=== PATIENT | male | born 1980 | race Caucasian/White ===

== ENCOUNTER 2018-05-22 14:45 | Emergency (ER) | payer OTHER ==
--- NOTE | 2018-05-22 15:00 | ED Physician Documentation ---
PD HPI FOCAL NEURO - Stated complaint Stated Complaint: NUMB FACE/SLURRING - Chief complaint Chief Complaint: Neuro - History obtained from History obtained from: Patient - History of Present Illness Timing - onset: Today (He had brief symptoms about a month ago and again today. The first time it lasted about a minute, this time 2-3 minutes. Basically what he noticed is watering of the right eye and then tenderness on the right and facial numbness without any symptoms below the neck. He had this episode today lasted 3 minutes about an hour [place]. There is no associated headache. Other than the other time a month ago has only happened one time. He has no personal medical problems but he does note a history of stroke in the family at age 53 claiming his father.) Review of Systems Ten Systems: 10 systems reviewed and negative Constitutional: denies: Fever, Chills Nose: denies: Rhinorrhea / runny nose, Congestion Cardiac: denies: Chest pain / pressure, Palpitations Respiratory: denies: Dyspnea, Cough PD ED PE NORMAL - Vitals Vital signs reviewed: Yes - General General: Alert and oriented X 3, No acute distress, Well developed/nourished - HEENT HEENT: PERRL, EOMI, Pharynx benign - Neck Neck: Supple, no meningeal sign, No bony TTP - Cardiac Cardiac: RRR, No murmur - Respiratory Respiratory: No respiratory distress, Clear bilaterally - Abdomen Abdomen: Normal bowel sounds, Soft, Non tender - Derm Derm: Normal color, Warm and dry - Extremities Extremities: No edema, No calf tenderness / cord - Neuro Neuro: Alert and oriented X 3, press machine feeder 2-12 intact Eye Opening: Spontaneous Motor: Obeys Commands Verbal: Oriented GCS Score: 15 - Psych Psych: Normal mood, Other (Slightly odd affect and he Makes a few statements that make me wonder about mental illness, 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 No: Normal affect NIHSS - Time Time: 14:55 - Level of Consciousness Level of consciousness: (0) Alert, Keenly responsive LOC Questions: (0) Answers both Q's correct LOC Commands: (0) Performs both correctly - Gaze Best Gaze: (0) Normal - Visual Visual: (0) No loss - Facial Palsy Facial Palsy: (0) Normal, symmetrical movement - Motor Arms (both separate) Motor Arm (right): (0) No drift Motor Arm (left): (0) No drift - Motor Legs (both separate) Motor Leg (right): (0) No drift Motor Leg (left): (0) No drift - Limb Ataxia Limb Ataxia: (0) Absent - Sensory Sensory: (0) Normal - Best Language Best Language: (0) No aphasia - Dysarthria Dysarthria: (0) Normal - Extinction and Inattention (formally neg Extinction and inattention: (0) No abnormality - Total Score/Results Total Score/Result: 0 Results - Vitals Vitals: Vital Signs - 24 hr 05/22/18 05/22/18 14:49 16:34 Temperature 36.8 C Heart Rate 59 L 57 L Respiratory 18 16 Rate Blood Pressure 130/80 138/75 H O2 Saturation 99 100 - Labs Labs: Laboratory Tests 05/22/18 05/22/18 05/22/18 15:06 15:06 15:06 WBC 7.1 RBC 5.02 Hgb 15.5 Hct 44.2 MCV 88.0 MCH 30.8 MCHC 35.0 RDW 12.7 Plt Count 193 MPV 8.4 Neut # (Auto) 4.7 Lymph # (Auto) 1.9 [place] # (Auto) 0.4 Eos # (Auto) 0.1 Baso # (Auto) 0.0 Absolute Nucleated RBC 0.00 Nucleated RBC % 0.0 PT 11.3 INR 1.0 Sodium 136 Potassium 4.3 Chloride 100 L Carbon Dioxide 30 Anion Gap 6.0 BUN 17 Creatinine 1.1 Estimated GFR (MDRD) 75 L Glucose 121 H Calcium 10.0 Magnesium 2.1 Total Bilirubin 2.2 H AST 24 ALT 25 Alkaline Phosphatase 56 Total Protein 7.9 Albumin 4.5 Globulin 3.4 Albumin/Globulin Ratio 1.3 Lipase 28 TSH Salicylates < 6.0 Urine Opiates Screen Ur Oxycodone Screen Urine Methadone Screen Ur Propoxyphene Screen Acetaminophen < 10 L Ur Barbiturates Screen Ur Tricyclics Screen Ur Phencyclidine Scrn Ur Amphetamine Screen U Methamphetamines Scrn U Benzodiazepines Scrn Urine Cocaine Screen U Cannabinoids Screen Ethyl Alcohol < 5.0 05/22/18 05/22/18 15:06 16:07 WBC RBC Hgb Hct MCV MCH MCHC RDW Plt Count MPV Neut # (Auto) Lymph # (Auto) [place] # (Auto) Eos # (Auto) Baso # (Auto) Absolute Nucleated RBC Nucleated RBC % PT INR Sodium Potassium Chloride Carbon Dioxide Anion Gap BUN Creatinine Estimated GFR (MDRD) Glucose Calcium Magnesium Total Bilirubin AST ALT Alkaline Phosphatase Total Protein Albumin Globulin Albumin/Globulin Ratio Lipase TSH 0.35 Salicylates Urine Opiates Screen NEGATIVE Ur Oxycodone Screen NEGATIVE Urine Methadone Screen NEGATIVE Ur Propoxyphene Screen NEGATIVE Acetaminophen Ur Barbiturates Screen NEGATIVE Ur Tricyclics Screen POSITIVE H Ur Phencyclidine Scrn NEGATIVE Ur Amphetamine Screen NEGATIVE U Methamphetamines Scrn NEGATIVE U Benzodiazepines Scrn NEGATIVE Urine Cocaine Screen NEGATIVE U Cannabinoids Screen POSITIVE H Ethyl Alcohol - Rads (name of study) Ct Head Radiology: EMP read contemporaneously (NAD) PD MEDICAL DECISION MAKING - ED course ED course: Frankly sounds more like cluster headaches than anything else with tinnitus and a watery eye and facial numbness, all the symptoms were fleeting. It is really not very consistent with TIA. If it were TIA, his ABCD score is 0 and outpatient management and workup is reasonable. - Sepsis Event Vital Signs: Vital Signs - 24 hr 05/22/18 05/22/18 14:49 16:34 Temperature 36.8 C Heart Rate 59 L 57 L Respiratory 18 16 Rate Blood Pressure 130/80 138/75 H O2 Saturation 99 100 Departure - Departure Disposition: 01 Home, Self Care Clinical Impression: Watery eyes, Right facial numbness Condition: Good Record reviewed to determine appropriate education?: Yes Instructions: ED Transient Ischemic Attack Comments: Take a baby aspirin a day, follow-up with your physician, next available appointment. Return if worsening or recurrent symptoms occur. Discharge Date/Time: 05/22/18 16:34
[2018-05-22 15:15] LABS: BASOPHILS % (AUTO) 0.4 %; EOSINOPHILS # (AUTO) 0.1 10^3/uL (0.0-0.7); EOSINOPHILS % (AUTO) 0.8 %; HGB - HEMOGLOBIN 15.5 g/dL (14.0-18.0); LYMPHOCYTES # (AUTO) 1.9 10^3/uL (1.5-3.5); LYMPHOCYTES % (AUTO) 26.3 %; MEAN CORPUSCULAR HEMOGLOBIN 30.8 pg (27.0-31.0); MEAN PLATELET VOLUME 8.4 fL (7.4-11.4); MONOCYTES # (AUTO) 0.4 10^3/uL (0.0-1.0); MONOCYTES % (AUTO) 5.9 %; NEUTROPHILS # (AUTO) 4.7 10^3/uL (1.5-6.6); NEUTROPHILS % (AUTO) 66.6 %; PLT - PLATELET COUNT 193 10^3/uL (130-450); RED BLOOD COUNT 5.02 10^6/uL (4.70-6.10); RED CELL DISTRIBUTION WIDTH 12.7 % (12.0-15.0); WHITE BLOOD COUNT 7.1 x10^3/uL (4.8-10.8)
[2018-05-22 15:20] LABS: PT - PROTHROMBIN TIME 11.3 secs (9.9-12.6)
[2018-05-22 15:28] LABS: ALBUMIN 4.5 g/dL (3.2-5.5); ALBUMIN/GLOBULIN RATIO 1.3 (1.0-2.2); ALKALINE PHOSPHATASE 56 IU/L (42-121); ALT ALANINE AMINOTRANSFERASE 25 IU/L (10-60); AST ASPARTATE AMINOTRANSFERASE 24 IU/L (10-42); BILIRUBIN,TOTAL 2.2 mg/dL (0.2-1.0); BUN - BLOOD UREA NITROGEN 17 mg/dL (6-20); CARBON DIOXIDE - CO2 30 mmol/L (21-32); CHLORIDE 100 mmol/L (101-111); CREATININE 1.1 mg/dL (0.6-1.2); GFR - MDRD 75 (>89); GLUCOSE 121 mg/dL (70-100); LIPASE 28 U/L (22-51); MAGNESIUM 2.1 mg/dL (1.7-2.8); SALICYLATE < 6.0 mg/dL; SODIUM 136 mmol/L (135-145); TOTAL PROTEIN 7.9 g/dL (6.7-8.2)
[2018-05-22 15:50] LABS: ACETAMINOPHEN < 10 ug/mL (10-30)
--- NOTE | 2018-05-22 16:07 | CT Report ---
Procedure Date: 05/22/2018 Accession Number: [id number] / [id number] Procedure: CT - Head W/O CPT Code: FULL RESULT: EXAM: CT HEAD EXAM DATE: 05/22/2018 03:40 PM. CLINICAL HISTORY: Brief TIA sx. COMPARISON: None. TECHNIQUE: Multiaxial CT images were obtained from the foramen magnum to the vertex. Reformats: Sagittal and coronal. IV contrast: None. In accordance with CT protocol optimization, one or more of the following dose reduction techniques were utilized for this exam: automated exposure control, adjustment of mA and/or KV based on patient size, or use of iterative reconstructive technique. FINDINGS: Parenchyma: No intraparenchymal hemorrhage. No evidence of mass, midline shift, or CT findings of infarction. Vasques-white differentiation is distinct. Extraaxial Spaces: Normal for age. No subdural or epidural collections identified. Ventricles: Normal in size and position. Sinuses and Orbits: Imaged paranasal sinuses, orbits, and mastoids show no significant abnormality. Bones: No evidence of fracture or calvarial defect. Other: None. IMPRESSION: Negative nonenhanced head CT. RADIA
[2018-05-22 16:19] LABS: MUDS CUTOFF CONCENTRATIONS CUTOFF CONC BELOW:
[2018-05-22 16:31] LABS: AMPHETAMINE SCREEN,URINE NEGATIVE (NEGATIVE); BENZODIAZEPINES SCREEN, URINE NEGATIVE (NEGATIVE); COCAINE SCREEN URINE NEGATIVE (NEGATIVE); METHADONE SCREEN, URINE NEGATIVE (NEGATIVE); METHAMPHETAMINES SCREEN, URINE NEGATIVE (NEGATIVE); OPIATE SCREEN, URINE NEGATIVE (NEGATIVE); OXYCODONE SCREEN, URINE NEGATIVE (NEGATIVE); PROPOXYPHENE SCREEN, URINE NEGATIVE (NEGATIVE); TRICYCLIC ANTIDEPRESSANT,URINE POSITIVE (NEGATIVE)
[2018-05-22 16:35] VITALS: BP 138/75
== END 2018-05-22 16:34 | disposition home or self-care (01) ==
LOC: ED 14:45
DX: H57.9 Unspecified disorder of eye and adnexa (principal); R20.0 Anesthesia of skin; Z82.3 Family history of stroke
CPT/HCPCS: 36415; 70450; 80053; 80306; 80307; 80320; 80329; 83690; 83735; 84443; 85025; 85610; 99283

== ENCOUNTER 2018-06-06 17:57 | Emergency (ER) | payer OTHER ==
[2018-06-06 18:36] VITALS: BP 129/88
--- NOTE | 2018-06-06 18:40 | ED Physician Documentation ---
PD HPI MHE - Stated complaint Stated Complaint: FIT FOR BOOKING - Chief complaint Chief Complaint: General - History obtained from History obtained from: Patient, Police - History of Present Illness Primary symptom: Medical clearance. No: Suicidal ideation, Psychosis (having pressured speech and paranoid ideation (FBI and [employer] are scrutinizing him) but is still functional and able to self care.), Aggressive behavior Timing - onset: Unknown Contributing factors: Off meds. No: Substance abuse - ETOH, Substance abuse - drugs Similar symptoms before: Diagnosis (psychosis in the past related to bipolar/ schizoaffective.) Recently seen: Not recently seen, Other ([facility] brought patient here with clearance for long term. He had broken objects or such. Officer was concerned the patient was having delusions that SUZ[employer]/FBI wer watching him. Denied suicidal ideation nor attempts. Has history of psychiatric disorder. He denies any current medications.) Review of Systems Constitutional: denies: Fever Nose: denies: Rhinorrhea / runny nose, Congestion Throat: denies: Sore throat Cardiac: denies: Chest pain / pressure Respiratory: denies: Dyspnea, Cough GI: denies: Abdominal Pain, Vomiting, Diarrhea Skin: denies: Rash, Lesions Neurologic: denies: Generalized weakness, Altered mental status, Headache, Head injury PD PAST MEDICAL HISTORY - Past Medical History Cardiovascular: None Respiratory: None Neuro: None Psych: Bipolar disorder - Past Surgical History Past Surgical History: No - Present Medications Home Medications: Ambulatory Orders Medication Instructions Recorded Confirmed No Known Home Medications [No 06/06/18 06/07/18 Known Home Medications] - Allergies Allergies/Adverse Reactions: Allergies Allergy/AdvReac Type Severity Reaction Status Date / Time No Known Drug Allergies Allergy Verified 06/07/18 11:41 - Social History Does the pt smoke?: No Smoking Status: Never smoker Does the pt drink ETOH?: No Does the pt have substance abuse?: Yes - POLST Patient has POLST: No PD ED PE NORMAL - Vitals Vital signs reviewed: Yes - General General: Alert and oriented X 3, No acute distress, Well developed/nourished - HEENT HEENT: Moist mucous membranes, Pharynx benign - Neck Neck: Supple, no meningeal sign, No adenopathy - Cardiac Cardiac: RRR, No murmur - Respiratory Respiratory: Clear bilaterally - Derm Derm: Normal color, Warm and dry - Extremities Extremities: Normal ROM s pain - Neuro Neuro: Alert and oriented X 3, No motor deficit, Normal speech - Psych Psych: No: Normal affect (somewhat pressured speech but oriented well and conversant. Denies suicidality. Denies drug use. ) PD MEDICAL DECISION MAKING - ED course Complexity details: considered differential, d/w patient, other (tlked with [employer] officer, with the patient being arrested anyway, and the ER being busy, the patient is not suicidal and is alert and conversant, though has some paranoid delusions and pressured speech, does not seem to be disabled per se, so I feel he is best to go to long term and if they feel he worsens, then can get [facility] to evalaute him there. Best use of resources at this point with not clearly needing detainment. ) Departure - Departure Disposition: 01 Home, Self Care Clinical Impression: Mental health-related complaint, Paranoid delusion Clinical Impression: (Ruled Out): Suicidal ideation Condition: Stable Record reviewed to determine appropriate education?: Yes Comments: You can have assessment by social work or mental health provider in long term if needed. You do not seem suicidal nor overtly psychotic at this time. Drink lots of fluids. I think you are okay for long term confinement at this time. Discharge Date/Time: 06/06/18 18:59
== END 2018-06-06 18:59 | disposition home or self-care (01) ==
LOC: ED 17:57
DX: Z02.89 Encounter for other administrative examinations (principal); F22 Delusional disorders
CPT/HCPCS: 99282

== ENCOUNTER 2018-06-06 23:29 | Emergency (ER) | payer OTHER ==
[2018-06-06 23:41] VITALS: BP 127/86
[2018-06-07 00:21] LABS: MUDS CUTOFF CONCENTRATIONS CUTOFF CONC BELOW:
[2018-06-07 00:22] LABS: ALBUMIN 4.9 g/dL (3.2-5.5); ALBUMIN/GLOBULIN RATIO 1.6 (1.0-2.2); ALKALINE PHOSPHATASE 67 IU/L (42-121); ALT ALANINE AMINOTRANSFERASE 33 IU/L (10-60); AST ASPARTATE AMINOTRANSFERASE 21 IU/L (10-42); BILIRUBIN,TOTAL 2.5 mg/dL (0.2-1.0); BUN - BLOOD UREA NITROGEN 14 mg/dL (6-20); CALCIUM 9.6 mg/dL (8.5-10.3); CARBON DIOXIDE - CO2 31 mmol/L (21-32); CHLORIDE 100 mmol/L (101-111); GFR - MDRD 83 (>89); GLUCOSE 106 mg/dL (70-100); LIPASE 30 U/L (22-51); SALICYLATE < 6.0 mg/dL; SODIUM 139 mmol/L (135-145)
[2018-06-07 00:27] LABS: BILIRUBIN,URINE NEGATIVE (NEGATIVE); GLUCOSE, URINE (UA) NEGATIVE (NEGATIVE); KETONES,URINE (UA) NEGATIVE (NEGATIVE); LEUKOCYTE ESTERASE, URINE NEGATIVE (NEGATIVE); NITRITE,URINE NEGATIVE (NEGATIVE); OCCULT BLOOD,URINE NEGATIVE (NEGATIVE); PH,URINE 6.5 PH (5.0-7.5); PROTEIN,URINE NEGATIVE (NEGATIVE); UROBILINOGEN,URINE 0.2 (NORMAL) E.U./dL (NORMAL)
[2018-06-07 00:28] LABS: CLARITY,URINE CLEAR (CLEAR)
[2018-06-07 00:28] LABS: ACETAMINOPHEN < 10 ug/mL (10-30)
--- NOTE | 2018-06-07 00:34 | ED Physician Documentation ---
PD HPI MHE - Stated complaint Stated Complaint: MHE - Chief complaint Chief Complaint: MHE - History obtained from History obtained from: Patient, Other - History of Present Illness Primary symptom: Psychosis Timing - onset: Chronic Similar symptoms before: Work up / diagnostics Recently seen: Admitted - Additional information Additional information: Patient is a 38 year old schizophrenic who was brought in for abnormal thoughts. Patient had recently been admitted at [facility] (a psychiatric facility). patient was discharged on a least restrictive order. Patient was picked up by police today and when evaluated by [facility] patient was found to have persistent delusions about the [employer] implanting a device in him. DM wanted medical admission so brought the patient to the emergency department for medical clearance. Review of Systems Ten Systems: 10 systems reviewed and negative Psychiatric: reports: Delusions PD PAST MEDICAL HISTORY - Past Medical History Past Medical History: Yes Psych: Bipolar disorder, Schizophrenia, Post traumatic stress disorder - Past Surgical History Past Surgical History: No - Present Medications Home Medications: Ambulatory Orders Medication Instructions Recorded Confirmed No Known Home Medications [No 06/06/18 06/06/18 Known Home Medications] - Allergies Allergies/Adverse Reactions: Allergies Allergy/AdvReac Type Severity Reaction Status Date / Time No Known Drug Allergies Allergy Verified 06/06/18 23:41 - Social History Does the pt smoke?: No Smoking Status: Never smoker Does the pt drink ETOH?: No Does the pt have substance abuse?: Yes - Immunizations Immunizations are current?: Yes - POLST Patient has POLST: No PD ED PE NORMAL - Vitals Vital signs reviewed: Yes - General General: Alert and oriented X 3, No acute distress - HEENT HEENT: Atraumatic - Cardiac Cardiac: RRR - Respiratory Respiratory: No respiratory distress - Derm Derm: Normal color, Warm and dry - Neuro Neuro: Alert and oriented X 3, No motor deficit, Normal speech PD ED PE EXPANDED - Psych Psych: Delusions Results - Vitals Vitals: Vital Signs - 24 hr 06/06/18 23:32 Temperature 36.0 C L Heart Rate 89 Respiratory 18 Rate Blood Pressure 127/86 H O2 Saturation 100 Oxygen O2 Source Room air - Labs Labs: Laboratory Tests 06/06/18 06/06/18 06/07/18 00:00 23:42 00:15 WBC 7.9 RBC 5.30 Hgb 16.2 Hct 46.2 MCV 87.2 MCH 30.6 MCHC 35.1 RDW 12.8 Plt Count 207 MPV 7.8 Neut # (Auto) 5.5 Lymph # (Auto) 2.0 [place] # (Auto) 0.4 Eos # (Auto) 0.0 Baso # (Auto) 0.0 Absolute Nucleated RBC 0.00 Nucleated RBC % 0.0 Sodium 139 Potassium 3.5 Chloride 100 L Carbon Dioxide 31 Anion Gap 8.0 BUN 14 Creatinine 1.0 Estimated GFR (MDRD) 83 L Glucose 106 H Calcium 9.6 Total Bilirubin 2.5 H AST 21 ALT 33 Alkaline Phosphatase 67 Total Protein 8.0 Albumin 4.9 Globulin 3.1 Albumin/Globulin Ratio 1.6 Lipase 30 Urine Color YELLOW Urine Clarity CLEAR Urine pH 6.5 Ur Specific [place] 1.020 Urine Protein NEGATIVE Urine Glucose (UA) NEGATIVE Urine Ketones NEGATIVE Urine Occult Blood NEGATIVE Urine Nitrite NEGATIVE Urine Bilirubin NEGATIVE Urine Urobilinogen 0.2 (NORMAL) Ur Leukocyte Esterase NEGATIVE Ur Microscopic Review NOT INDICATED Urine Culture Comments NOT INDICATED Salicylates < 6.0 Urine Opiates Screen NEGATIVE Ur Oxycodone Screen NEGATIVE Urine Methadone Screen NEGATIVE Ur Propoxyphene Screen NEGATIVE Acetaminophen < 10 L Ur Barbiturates Screen NEGATIVE Ur Tricyclics Screen POSITIVE H Ur Phencyclidine Scrn NEGATIVE Ur Amphetamine Screen NEGATIVE U Methamphetamines Scrn NEGATIVE U Benzodiazepines Scrn NEGATIVE [place] Urine Cocaine Screen NEGATIVE U Cannabinoids Screen POSITIVE H Ethyl Alcohol < 5.0 06/07/18 00:44 WBC RBC Hgb Hct MCV MCH MCHC RDW Plt Count MPV Neut # (Auto) Lymph # (Auto) [place] # (Auto) Eos # (Auto) Baso # (Auto) Absolute Nucleated RBC Nucleated RBC % Sodium Potassium Chloride Carbon Dioxide Anion Gap BUN Creatinine Estimated GFR (MDRD) Glucose Calcium Total Bilirubin AST ALT Alkaline Phosphatase Total Protein Albumin Globulin Albumin/Globulin Ratio Lipase Urine Color Urine Clarity Urine pH Ur Specific [place] Urine Protein Urine Glucose (UA) Urine Ketones Urine Occult Blood Urine Nitrite Urine Bilirubin Urine Urobilinogen Ur Leukocyte Esterase Ur Microscopic Review Urine Culture Comments Salicylates Urine Opiates Screen Ur Oxycodone Screen Urine Methadone Screen Ur Propoxyphene Screen Acetaminophen Ur Barbiturates Screen Ur Tricyclics Screen Ur Phencyclidine Scrn Ur Amphetamine Screen U Methamphetamines Scrn U Benzodiazepines Scrn [place] < 0.05 Urine Cocaine Screen U Cannabinoids Screen Ethyl Alcohol PD MEDICAL DECISION MAKING - ED course Complexity details: reviewed old records, reviewed results, re-evaluated patient , considered differential, d/w patient, d/w regulatory services consultant ED course: Patient was seen and examined at bedside. patient was in no acute distress but did have active delusions. Patient was evaluated by [facility] who recommended inpatient admission. Patient was medically cleared and stable for transfer. Patient was accepted by [facility]. patient was treated with ativan and subsequently benadryl to help hims sleep. arrangements were made and patient as transferred in stable condition. - Sepsis Event Vital Signs: Vital Signs - 24 hr 06/06/18 23:32 Temperature 36.0 C L Heart Rate 89 Respiratory 18 Rate Blood Pressure 127/86 H O2 Saturation 100 Oxygen O2 Source Room air Departure - Departure Disposition: 65 Psych Hosp/Unit DC/Xfer Clinical Impression: Schizophrenia, Delusional disorder Condition: Stable
[2018-06-07 00:40] LABS: AMPHETAMINE SCREEN,URINE NEGATIVE (NEGATIVE); BENZODIAZEPINES SCREEN, URINE NEGATIVE (NEGATIVE); COCAINE SCREEN URINE NEGATIVE (NEGATIVE); METHADONE SCREEN, URINE NEGATIVE (NEGATIVE); METHAMPHETAMINES SCREEN, URINE NEGATIVE (NEGATIVE); OPIATE SCREEN, URINE NEGATIVE (NEGATIVE); OXYCODONE SCREEN, URINE NEGATIVE (NEGATIVE); PROPOXYPHENE SCREEN, URINE NEGATIVE (NEGATIVE); TRICYCLIC ANTIDEPRESSANT,URINE POSITIVE (NEGATIVE)
[2018-06-07] MEDS ORDERED: LORazepam 0.5 MG TABLET PO STA (01:28)
[2018-06-07 01:46] LABS: LITHIUM < 0.05 mmol/L
[2018-06-07] MEDS ORDERED: diphenhydrAMINE 25 MG CAPSULE PO STA (02:48)
== END 2018-06-07 07:40 ==
LOC: ED 23:29
DX: F20.9 Schizophrenia, unspecified (principal); F22 Delusional disorders
CPT/HCPCS: 36415; 80053; 80178; 80306; 80307; 80320; 80329; 81001; 81003; 83690; 84443; 85025; 87086; 93005; 99283; 99284

== ENCOUNTER 2018-06-07 07:41 | Outpatient (CLI) | payer OTHER | END 2018-06-07 07:42 | LOC: EMS 07:41 | PROVIDERS: ATTEND Surgery | DX: F22 Delusional disorders (principal); F20.9 Schizophrenia, unspecified ==

== ENCOUNTER 2018-06-07 10:13 | Outpatient (CLI) | payer OTHER | END 2018-06-07 10:14 | disposition critical access hospital (66) | LOC: EMS 10:13 | PROVIDERS: ATTEND Surgery | DX: F22 Delusional disorders (principal) ==

== ENCOUNTER 2018-06-07 11:28 | Emergency (ER) | payer OTHER ==
--- NOTE | 2018-06-07 11:15 | ED Physician Documentation ---
PD HPI MHE - Stated complaint Stated Complaint: MHE - History obtained from History obtained from: Patient, EMS - History of Present Illness Primary symptom: Psychosis, Anxiety. No: Suicidal ideation, Homicidal ideation Timing - onset: How many days ago (He has had pressured speech and delusions reportedly for several days or more. He was seen here in the emergency department yesterday and was seen by the [facility] with intention to revoke his LR O and have him involuntarily committed for grave disability. Apparently there was paperwork abnormality and on transfer to [place] they would not accept him and so he returned back to the ER here. He had not been out of provider site during the time. He is still having paranoid delusions of the FBI and [employer] scrutinizing him. He is oriented to person place and time.) Contributing factors: No: Substance abuse - ETOH, Substance abuse - drugs Similar symptoms before: Diagnosis (bipolar disorder and schizoaffective disorder.) Recently seen: Emergency Dept (yesterday.) Review of Systems Constitutional: denies: Fever, Chills Nose: denies: Rhinorrhea / runny nose, Congestion Throat: denies: Sore throat Respiratory: denies: Cough GI: denies: Vomiting, Diarrhea Skin: denies: Rash, Lesions PD PAST MEDICAL HISTORY - Past Medical History Cardiovascular: None Respiratory: None Neuro: None Endocrine/Autoimmune: None - Present Medications Home Medications: Ambulatory Orders Medication Instructions Recorded Confirmed No Known Home Medications [No 06/06/18 06/07/18 Known Home Medications] - Allergies Allergies/Adverse Reactions: Allergies Allergy/AdvReac Type Severity Reaction Status Date / Time No Known Drug Allergies Allergy Verified 06/07/18 11:41 PD ED PE NORMAL - Vitals Vital signs reviewed: Yes - General General: Alert and oriented X 3, No acute distress (He does have some pressured speech. There is some mild tangentiality to his context. He does have significant paranoid delusions of being followed by the FBI and [employer]. He is oriented to person place and time.), Well developed/nourished - HEENT HEENT: Atraumatic, Pharynx benign - Neck Neck: Supple, no meningeal sign, No adenopathy - Cardiac Cardiac: RRR, No murmur - Respiratory Respiratory: Clear bilaterally - Abdomen Abdomen: Soft, Non tender - Derm Derm: Normal color - Neuro Neuro: Alert and oriented X 3, No motor deficit, Normal speech (thought pattern is pressured) Eye Opening: Spontaneous Motor: Obeys Commands Verbal: Oriented GCS Score: 15 - Psych Psych: No: Normal mood (somewhat anxious and has paranoid delusions of FBI and [employer] spying on him and scrutinizing him. ) Results - Vitals Vitals: Vital Signs - 24 hr 06/07/18 11:37 Temperature 36.0 C L Heart Rate 71 Respiratory 20 Rate Blood Pressure 135/73 H O2 Saturation 98 Oxygen O2 Source Room air PD MEDICAL DECISION MAKING - ED course Complexity details: reviewed old records, considered differential, d/w patient, d/w project management consultant (SHANNON) - Sepsis Event Vital Signs: Vital Signs - 24 hr 06/07/18 11:37 Temperature 36.0 C L Heart Rate 71 Respiratory 20 Rate Blood Pressure 135/73 H O2 Saturation 98 Oxygen O2 Source Room air Departure - Departure Disposition: 65 Psych Hosp/Unit DC/Xfer Clinical Impression: Delusional disorder, Acute psychosis Condition: Stable Record reviewed to determine appropriate education?: Yes
[2018-06-07] MEDS ORDERED: LORazepam 0.5 MG TABLET PO STA (16:02)
[2018-06-07 18:15] VITALS: BP 130/62
== END 2018-06-07 18:15 ==
LOC: EDUNIT# → ED 11:28
DX: F23 Brief psychotic disorder (principal); F22 Delusional disorders; Z04.6 Encounter for general psychiatric examination, requested by authority
CPT/HCPCS: 36415; 80053; 80178; 80306; 80307; 80320; 80329; 81003; 83690; 84443; 85025; 93005; 99283; 99284; A9270; 81001; 87086

== ENCOUNTER 2018-08-19 18:23 | Emergency (ER) | payer MEDICARE ==
[2018-08-19 18:55] LABS: BASOPHILS % (AUTO) 0.5 %; EOSINOPHILS # (AUTO) 0.1 10^3/uL (0.0-0.7); EOSINOPHILS % (AUTO) 1.3 %; HGB - HEMOGLOBIN 14.3 g/dL (14.0-18.0); LYMPHOCYTES # (AUTO) 2.9 10^3/uL (1.5-3.5); LYMPHOCYTES % (AUTO) 31.3 %; MEAN CORPUSCULAR HGB CONC 34.8 g/dL (32.0-36.0); MEAN PLATELET VOLUME 7.5 fL (7.4-11.4); MONOCYTES # (AUTO) 0.6 10^3/uL (0.0-1.0); MONOCYTES % (AUTO) 6.2 %; NEUTROPHILS # (AUTO) 5.7 10^3/uL (1.5-6.6); NEUTROPHILS % (AUTO) 60.7 %; PLT - PLATELET COUNT 232 10^3/uL (130-450); RED BLOOD COUNT 4.62 10^6/uL (4.70-6.10); RED CELL DISTRIBUTION WIDTH 13.3 % (12.0-15.0); WHITE BLOOD COUNT 9.3 x10^3/uL (4.8-10.8)
[2018-08-19 19:06] LABS: ALBUMIN 4.4 g/dL (3.2-5.5); ALBUMIN/GLOBULIN RATIO 1.6 (1.0-2.2); BILIRUBIN,TOTAL 1.2 mg/dL (0.2-1.0); CALCIUM 9.2 mg/dL (8.5-10.3); CREATININE 1.1 mg/dL (0.6-1.2); TOTAL PROTEIN 7.1 g/dL (6.7-8.2)
--- NOTE | 2018-08-19 19:27 | XRAY Report ---
Reason: chest pain Procedure Date: 08/19/2018 Accession Number: [id number] / [id number] Procedure: XR - Chest 2 View X-Ray CPT Code: 92536 FULL RESULT: EXAM: CHEST RADIOGRAPHY EXAM DATE: 08/19/2018 07:10 PM. CLINICAL HISTORY: Chest pain. COMPARISON: None. TECHNIQUE: 2 views. FINDINGS: Lungs/Pleura: No focal opacities evident. No pleural effusion. No pneumothorax. Normal volumes. Mediastinum: Heart and mediastinal contours are unremarkable. Other: None. IMPRESSION: Normal 2-view chest radiography. RADIA
--- NOTE | 2018-08-19 19:56 | ED Physician Documentation ---
PD HPI CHEST PAIN - Stated complaint Stated Complaint: CP - Chief complaint Chief Complaint: Cardiac - History obtained from History obtained from: Patient - History of Present Illness Timing - onset: How many hours ago (has had intermittent charge "electical jolt" feeling into left chest the past hour or so. He feels it is angina and has had it similarly in the past. He says he has had MIs twice, but looks like evals for chest pain and not IL.), Today Timing - onset during: Light activity. No: Exertion Timing - duration: Seconds (he feels fleeting "jolt-like" pains.) Quality: Stabbing Location: Left chest Radiation: No: Jaw, Neck Improved by: No: Rest Associated symptoms: Palpitations. No: Shortness of air, Feeling faint / dizzy, General Weakness, Cough Similar symptoms before: No diagnosis Recently seen: Not recently seen Review of Systems Constitutional: denies: Fever, Chills Nose: denies: Rhinorrhea / runny nose, Congestion Throat: denies: Sore throat Respiratory: denies: Cough GI: denies: Abdominal Pain, Nausea, Vomiting Skin: denies: Rash, Lesions PD PAST MEDICAL HISTORY - Past Medical History Cardiovascular: None Respiratory: None Neuro: None Endocrine/Autoimmune: None GI: None Psych: Bipolar disorder, Schizophrenia, Post traumatic stress disorder - Past Surgical History Past Surgical History: No - Present Medications Home Medications: Ambulatory Orders Medication Instructions Recorded Confirmed Dexamethasone [Decadron] 4 mg PO DAILY #5 tablet 08/19/18 Divalproex Sodium [Depakote] 08/19/18 Meloxicam [Mobic] 15 mg PO DAILY #20 tablet 08/19/18 Propranolol [Inderal] 08/19/18 Quetiapine Fumarate [Seroquel] PRN 08/19/18 - Allergies Allergies/Adverse Reactions: Allergies Allergy/AdvReac Type Severity Reaction Status Date / Time No Known Drug Allergies Allergy Verified 06/07/18 11:41 - Social History Does the pt smoke?: No Smoking Status: Never smoker Does the pt drink ETOH?: No Does the pt have substance abuse?: Yes - Immunizations Immunizations are current?: Yes - POLST Patient has POLST: No PD ED PE NORMAL - Vitals Vital signs reviewed: Yes - General General: Alert and oriented X 3, No acute distress, Well developed/nourished - HEENT HEENT: Pharynx benign - Neck Neck: Supple, no meningeal sign, No adenopathy - Cardiac Cardiac: RRR, No murmur - Respiratory Respiratory: Clear bilaterally, Other (no chestwall tenderness ) - Abdomen Abdomen: Soft, Non tender - Derm Derm: Normal color, Warm and dry - Extremities Extremities: No deformity, No tenderness to palpate, Normal ROM s pain - Neuro Neuro: Alert and oriented X 3, No motor deficit, Normal speech Results - Vitals Vitals: Vital Signs - 24 hr 08/19/18 08/19/18 08/19/18 18:30 20:38 20:43 Temperature 36.5 C Heart Rate 63 56 L 71 Respiratory 12 16 16 Rate Blood Pressure 122/79 107/67 94/60 O2 Saturation 100 99 96 08/19/18 20:53 Temperature Heart Rate 71 Respiratory 16 Rate Blood Pressure 97/64 O2 Saturation 96 Oxygen O2 Source Room air - EKG (time done) 18:33 Rate: Rate (enter#) (66) Rhythm: NSR [place]: Normal Intervals: Normal [place] Ischemia: Normal ST segments. No: ST elevation c/w ischemia, ST depression - Labs Labs: Laboratory Tests 08/19/18 08/19/18 08/19/18 18:51 18:51 18:51 WBC 9.3 RBC 4.62 L Hgb 14.3 Hct 41.1 L MCV 89.0 MCH 31.0 MCHC 34.8 RDW 13.3 Plt Count 232 MPV 7.5 Neut # (Auto) 5.7 Lymph # (Auto) 2.9 [place] # (Auto) 0.6 Eos # (Auto) 0.1 Baso # (Auto) 0.0 Absolute Nucleated RBC 0.00 Nucleated RBC % 0.0 Sodium 141 Potassium 3.7 Chloride 104 Carbon Dioxide 30 Anion Gap 7.0 BUN 20 Creatinine 1.1 Estimated GFR (MDRD) 75 L Glucose 114 H Calcium 9.2 Total Bilirubin 1.2 H AST 33 ALT 73 H Alkaline Phosphatase 58 Troponin I < 0.04 Total Protein 7.1 Albumin 4.4 Globulin 2.7 Albumin/Globulin Ratio 1.6 Lipase 26 - Rads (name of study) chest xray Radiology: Prelim report reviewed (no acute process) PD MEDICAL DECISION MAKING - ED course Complexity details: considered differential (He is certain that his chest t winges are angina and he says he has had prior MIs but are really evals for chest pain that were not IL. I felt no harm with giving him the nitro, since he was so convinced. ), d/w patient Departure - Departure Disposition: 01 Home, Self Care Clinical Impression: Intermittent left-sided chest pain Condition: Stable Record reviewed to determine appropriate education?: Yes Instructions: ED Chest Pain Atypical Unkn Cause Prescriptions: Dexamethasone [Decadron] 4 mg PO DAILY #5 tablet Meloxicam [Mobic] 15 mg PO DAILY #20 tablet Comments: I think this is more inflammatory and not anginal. I would suggest Mobic and Decadron anti-inflammatories over the next week. Continue your usual medications. Follow up PMD if not improved in the next week. Discharge Date/Time: 08/19/18 21:00
[2018-08-19] MEDS ORDERED: DEXAMETHASONE 10 MG/ML VIAL PO STA (20:15)
[2018-08-19] MEDS ORDERED: NITROGLYCERIN SL 0.4 MG TABLET SL STA (20:15)
[2018-08-19] MEDS ORDERED: LORazepam 0.5 MG TABLET PO STA (20:15)
[2018-08-19 20:54] VITALS: BP 97/64
== END 2018-08-19 21:00 | disposition home or self-care (01) ==
LOC: ED 18:23
DX: R07.89 Other chest pain (principal); I25.2 Old myocardial infarction
CPT/HCPCS: 36415; 71046; 80053; 83690; 84484; 85025; 93005; 99284; A9270

== ENCOUNTER 2019-05-07 03:27 | Emergency (ER) | payer MEDICARE ==
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
[2019-05-07 04:09] LABS: BASOPHILS % (AUTO) 0.4 %; EOSINOPHILS # (AUTO) 0.1 10^3/uL (0.0-0.7); EOSINOPHILS % (AUTO) 0.7 %; HGB - HEMOGLOBIN 12.6 g/dL (14.0-18.0); LYMPHOCYTES # (AUTO) 1.6 10^3/uL (1.5-3.5); LYMPHOCYTES % (AUTO) 22.4 %; MEAN CORPUSCULAR HEMOGLOBIN 30.3 pg (27.0-31.0); MEAN CORPUSCULAR HGB CONC 33.8 g/dL (32.0-36.0); MEAN CORPUSCULAR VOLUME 89.7 fL (80.0-94.0); MEAN PLATELET VOLUME 9.4 fL (7.4-11.4); MONOCYTES # (AUTO) 0.6 10^3/uL (0.0-1.0); MONOCYTES % (AUTO) 7.8 %; NEUTROPHILS # (AUTO) 4.8 10^3/uL (1.5-6.6); NEUTROPHILS % (AUTO) 68.4 %; PLT - PLATELET COUNT 180 10^3/uL (130-450); RED BLOOD COUNT 4.16 10^6/uL (4.70-6.10); RED CELL DISTRIBUTION WIDTH 12.4 % (12.0-15.0)
[2019-05-07] MEDS ORDERED: diphenhydrAMINE 25 MG CAPSULE PO STA ×2 (04:20→23:21)
[2019-05-07 04:29] LABS: BUN - BLOOD UREA NITROGEN 18 mg/dL (6-20); CARBON DIOXIDE - CO2 27 mmol/L (21-32); CHLORIDE 106 mmol/L (101-111); CREATININE 0.8 mg/dL (0.6-1.2); GFR - MDRD 107 (>89); GLUCOSE 125 mg/dL (70-100); SODIUM 144 mmol/L (135-145)
[2019-05-07 04:30] LABS: ACETAMINOPHEN < 10 ug/mL (10-30); CALCIUM 9.2 mg/dL (8.5-10.3); SALICYLATE 16.4 mg/dL
[2019-05-07 05:48] LABS: MUDS CUTOFF CONCENTRATIONS CUTOFF CONC BELOW:
[2019-05-07 05:49] LABS: BILIRUBIN,URINE NEGATIVE (NEGATIVE); GLUCOSE, URINE (UA) NEGATIVE (NEGATIVE); KETONES,URINE (UA) NEGATIVE (NEGATIVE); LEUKOCYTE ESTERASE, URINE NEGATIVE (NEGATIVE); NITRITE,URINE NEGATIVE (NEGATIVE); OCCULT BLOOD,URINE NEGATIVE (NEGATIVE); PH,URINE 6.5 PH (5.0-7.5); PROTEIN,URINE NEGATIVE (NEGATIVE); UROBILINOGEN,URINE 0.2 (NORMAL) E.U./dL (NORMAL)
[2019-05-07 05:51] LABS: CLARITY,URINE CLEAR (CLEAR)
[2019-05-07 06:01] LABS: AMPHETAMINE SCREEN,URINE NEGATIVE (NEGATIVE); BENZODIAZEPINES SCREEN, URINE NEGATIVE (NEGATIVE); COCAINE SCREEN URINE NEGATIVE (NEGATIVE); METHADONE SCREEN, URINE NEGATIVE (NEGATIVE); METHAMPHETAMINES SCREEN, URINE NEGATIVE (NEGATIVE); OPIATE SCREEN, URINE POSITIVE (NEGATIVE); OXYCODONE SCREEN, URINE NEGATIVE (NEGATIVE); PROPOXYPHENE SCREEN, URINE NEGATIVE (NEGATIVE); TRICYCLIC ANTIDEPRESSANT,URINE NEGATIVE (NEGATIVE)
[2019-05-07] MEDS ORDERED: LORazepam 1 MG TABLET PO STA ×2 (12:01→23:21)
--- NOTE | 2019-05-07 18:07 | ED Physician Documentation ---
ED Addendum - Addendum Addendum: 05/07/19 18:06 [facility] contacted and looking for bed currently. Patient signed out to ED physician.
[2019-05-07] MEDS ORDERED: IBUPROFEN 600 MG TABLET PO STA ×2 (18:36→23:21)
[2019-05-08] MEDS ORDERED: IBUPROFEN 600 MG TABLET PO STA (09:18)
[2019-05-08 10:11] VITALS: BP 127/75
== END 2019-05-08 10:00 ==
LOC: EDUNIT# → ED 03:27
DX: F29 Unspecified psychosis not due to a substance or known physiological condition (principal); F31.9 Bipolar disorder, unspecified; F20.9 Schizophrenia, unspecified; S05.11XA Contusion of eyeball and orbital tissues, right eye, initial encounter; S60.221A Contusion of right hand, initial encounter; W50.0XXA Accidental hit or strike by another person, initial encounter; Y93.75 Activity, martial arts
CPT/HCPCS: 36415; 80048; 81003; 84443; 85025; 99284; 99285; A9270; J8499; 80306; 80307; 80320; 80329; 81001; 87086

== ENCOUNTER 2020-02-28 03:52 | Emergency (ER) | payer MEDICARE ==
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
[2020-02-28 05:18] LABS: MUDS CUTOFF CONCENTRATIONS CUTOFF CONC BELOW:
[2020-02-28 05:20] LABS: BASOPHILS # (AUTO) 0.1 10^3/uL (0.0-0.1); BASOPHILS % (AUTO) 0.4 %; EOSINOPHILS # (AUTO) 0.2 10^3/uL (0.0-0.7); EOSINOPHILS % (AUTO) 1.8 %; HGB - HEMOGLOBIN 13.3 g/dL (14.0-18.0); LYMPHOCYTES # (AUTO) 2.7 10^3/uL (1.5-3.5); LYMPHOCYTES % (AUTO) 23.9 %; MEAN CORPUSCULAR HEMOGLOBIN 29.4 pg (27.0-31.0); MEAN CORPUSCULAR HGB CONC 33.1 g/dL (32.0-36.0); MEAN CORPUSCULAR VOLUME 88.9 fL (80.0-94.0); MEAN PLATELET VOLUME 9.7 fL (7.4-11.4); MONOCYTES # (AUTO) 0.9 10^3/uL (0.0-1.0); MONOCYTES % (AUTO) 8.2 %; NEUTROPHILS # (AUTO) 7.4 10^3/uL (1.5-6.6); NEUTROPHILS % (AUTO) 65.3 %; PLT - PLATELET COUNT 196 10^3/uL (130-450); RED BLOOD COUNT 4.52 10^6/uL (4.70-6.10); RED CELL DISTRIBUTION WIDTH 13.8 % (12.0-15.0); WHITE BLOOD COUNT 11.4 x10^3/uL (4.8-10.8)
[2020-02-28 05:21] LABS: BILIRUBIN,URINE NEGATIVE (NEGATIVE); GLUCOSE, URINE (UA) NEGATIVE (NEGATIVE); KETONES,URINE (UA) NEGATIVE (NEGATIVE); LEUKOCYTE ESTERASE, URINE NEGATIVE (NEGATIVE); NITRITE,URINE NEGATIVE (NEGATIVE); OCCULT BLOOD,URINE NEGATIVE (NEGATIVE); PROTEIN,URINE NEGATIVE (NEGATIVE); UROBILINOGEN,URINE 0.2 (NORMAL) E.U./dL (NORMAL)
[2020-02-28 05:22] LABS: CLARITY,URINE HAZY (CLEAR)
[2020-02-28 05:29] LABS: AMORPHOUS SEDIMENT,UR Few /LPF; BACTERIA,URINE None Seen /HPF (None Seen); RBC,URINE None Seen /HPF (0-5); SQUAMOUS EPITHELIAL CELL,UR NONE SEEN (<= Few)
[2020-02-28 05:34] LABS: ACETAMINOPHEN < 10 ug/mL (10-30); BUN - BLOOD UREA NITROGEN 19 mg/dL (6-20); CALCIUM 9.4 mg/dL (8.5-10.3); CARBON DIOXIDE - CO2 34 mmol/L (21-32); CHLORIDE 98 mmol/L (101-111); CREATININE 1.1 mg/dL (0.6-1.2); GLUCOSE 113 mg/dL (70-100); SALICYLATE < 6.0 mg/dL; SODIUM 139 mmol/L (135-145)
[2020-02-28 05:36] LABS: AMPHETAMINE SCREEN,URINE NEGATIVE (NEGATIVE); BENZODIAZEPINES SCREEN, URINE NEGATIVE (NEGATIVE); COCAINE SCREEN URINE NEGATIVE (NEGATIVE); METHADONE SCREEN, URINE NEGATIVE (NEGATIVE); METHAMPHETAMINES SCREEN, URINE NEGATIVE (NEGATIVE); OPIATE SCREEN, URINE NEGATIVE (NEGATIVE); OXYCODONE SCREEN, URINE NEGATIVE (NEGATIVE); PROPOXYPHENE SCREEN, URINE NEGATIVE (NEGATIVE); TRICYCLIC ANTIDEPRESSANT,URINE NEGATIVE (NEGATIVE)
[2020-02-28 16:32] VITALS: BP 114/68
== END 2020-02-28 16:50 ==
LOC: ED 03:52
DX: F23 Brief psychotic disorder (principal); F22 Delusional disorders
CPT/HCPCS: 36415; 80048; 80306; 80307; 80320; 80329; 81001; 81003; 85025; 87086; 93005; 99283; 99285